=== PATIENT | male | born 1975 | race Caucasian/White ===

== ENCOUNTER 2016-10-29 09:56 | Outpatient (CLI) | payer OTHER ==
--- NOTE | 2016-10-29 11:24 | DIAGNOSTIC IMAGING REPORT ---
PROCEDURE: US VENOUS - LEFT EXT INDICATION: PAIN/SWELLING AND DISCOMFORT LEFT LEG TECHNIQUE: Duplex sonography of the deep venous system in the left lower extremity was performed. Compression and augmentation techniques were used. COMPARISON: None. FINDINGS: Each interrogated segment of deep vein from the common femoral vein into the calf veins demonstrates normal compressibility, augmentation and/or color Doppler flow without filling defect. No evidence of significant soft-tissue edema, soft-tissue mass or cyst. IMPRESSION: 1. No deep venous thrombosis in the left lower extremity.
== END 2016-10-29 23:00 ==
LOC: US SRH 09:56
DX: M79.605 Pain in left leg (principal)